=== PATIENT | female | born 1980 | race Two or more races ===

== ENCOUNTER 2020-09-18 17:11 | Observation (INO) | payer OTHER ==
[~2020-09-18] VITALS: Ht 157.5 cm; Wt 56.7 kg
[2020-09-18] MEDS ORDERED: LR 1,000 ML IV SCH (17:45)
[2020-09-18] MEDS ORDERED: TERBUTALINE SULFATE 1 MG/ML VIAL SUBCUT PRN (17:45)
[2020-09-18] MEDS ORDERED: TERBUTALINE SULFATE 1 MG/ML VIAL ONE (17:49)
[2020-09-18 18:56] LABS: BILIRUBIN,URINE NEGATIVE (NEGATIVE); BLOOD, URINE NEGATIVE (NEGATIVE); CLARITY/URINE CLEAR (CLEAR); COLOR,URINE YELLOW (YELLOW); GLUCOSE,URINE NEGATIVE (NEGATIVE); KETONES,URINE 3+ (NEGATIVE); LEUKOCYTE ESTERASE ,URINE 1+ (NEGATIVE); NITRITE, URINE NEGATIVE (NEGATIVE); PROTEIN URINE NEGATIVE (NEGATIVE); UROBILINOGEN,URINE 0.2 (0.2-1.0)
[2020-09-18 19:09] LABS: BACTERIA,URINE FEW /HPF (None Seen); MUCUS,URINE None Seen /LPF (None Seen); RBC,URINE 0-3 /HPF (0-3)
[2020-09-18] MEDS ORDERED: ONDANSETRON HCL 4 MG/2 ML VIAL IVP PRN (20:45)
[2020-09-18] MEDS ORDERED: cefTRIAXone 1 GM IVPB PREMIX 50 ML IV ONE (20:45)
[2020-09-18] MEDS ORDERED: MORPHINE SULFATE 10 MG/ML VIAL IVP ONE (21:00)
[2020-09-18] MEDS ORDERED: cefTRIAXone 1 GM VIAL ONE (22:11)
== END 2020-09-19 00:20 | disposition home or self-care (01) ==
LOC: SPU 17:11
PROVIDERS: ADMIT Obstetrics & Gynecology; ATTEND Obstetrics & Gynecology
DX: O62.9 Abnormality of forces of labor, unspecified (principal); O21.2 Late vomiting of pregnancy; Z3A.33 33 weeks gestation of pregnancy; Z88.0 Allergy status to penicillin
CPT/HCPCS: 59025; 81000; 96361; 96372; 96374; 96375; G0378; J0696; J2270; J2405; J3105; J7120; 59899